=== PATIENT | female | born 1980 | race Caucasian/White ===

== ENCOUNTER 2017-11-16 21:44 | Emergency (ER) | payer MEDICAID ==
[~2017-11-16] VITALS: Ht 162.6 cm; Wt 77.3 kg
[~2017-11-16 21:44] MED LIST: CAMP85GE TP
[2017-11-16] MEDS ORDERED: dexamethasone 4mg/ml inj IV ONE (22:45)
[2017-11-16] MEDS ORDERED: proCHLORperazine 10 MG/2 ml inj IV ONE (22:45)
[2017-11-16] MEDS ORDERED: magnesium 2GM in 50ml NS 50 ML IV ONE (22:45)
[2017-11-16] MEDS ORDERED: ketorolac trometh. 30mg/ml inj. IV ONE (22:45)
[2017-11-16] MEDS ORDERED: normal saline 1000ML IV soln IVB ONE (22:45)
[2017-11-16] MEDS ORDERED: acetaminophen 325mg tablet PO ONE (22:45)
[2017-11-16] MEDS ORDERED: aspirin 325mg tablet PO ONE (22:45)
[2017-11-17 00:45] VITALS: BP 137/84
== END 2017-11-17 00:52 | disposition home or self-care (01) ==
LOC: ER 21:45
DX: K08.89 Other specified disorders of teeth and supporting structures (principal); R42 Dizziness and giddiness; R51 Headache; R11.0 Nausea; R55 Syncope and collapse; E11.9 Type 2 diabetes mellitus without complications; Z98.890 Other specified postprocedural states; Z90.49 Acquired absence of other specified parts of digestive tract; Z59.0 Homelessness
CPT/HCPCS: 93005; 96365; 96375; 99284; J0780; J1100; J1885; J3475; J7030

== ENCOUNTER 2017-11-21 17:32 | Emergency (ER) | payer MEDICAID ==
[~2017-11-21] VITALS: Ht 5367.7 cm; Wt 66.5 kg
[2017-11-21 17:55] VITALS: BP 119/76
[2017-11-21] MEDS ORDERED: HYDR-3965 PO (18:12)
[2017-11-21] MEDS ORDERED: ONDA4TAB9 PO (18:12)
[2017-11-21] MEDS ORDERED: ondansetron 4mg rapidly disintigrating tab PO ONE (18:15)
[2017-11-21] MEDS ORDERED: HYDROcodone/acetaminophen 10/325mg tab PO ONE (18:15)
== END 2017-11-21 18:36 | disposition home or self-care (01) ==
LOC: ER 17:33
DX: K02.9 Dental caries, unspecified (principal); K08.89 Other specified disorders of teeth and supporting structures; E11.9 Type 2 diabetes mellitus without complications; Z59.0 Homelessness; Z90.49 Acquired absence of other specified parts of digestive tract; Z98.890 Other specified postprocedural states; Z79.899 Other long term (current) drug therapy
CPT/HCPCS: 99283

== ENCOUNTER 2017-11-30 16:01 | Emergency (ER) | payer MEDICAID ==
[~2017-11-30] VITALS: Ht 165.1 cm; Wt 75.0 kg
[~2017-11-30 16:01] MED LIST changes: +HYDR-3965 PO; +ONDA4TAB9 PO
[2017-11-30] MEDS ORDERED: HYDR-569 PO (16:37)
[2017-11-30] MEDS ORDERED: HYDROcodone/acetaminophen 10/325mg tab PO ONE (16:55)
[2017-11-30] MEDS ORDERED: ondansetron 4mg rapidly disintigrating tab PO ONE (17:00)
[2017-11-30 17:13] VITALS: BP 145/81
== END 2017-11-30 17:22 | disposition home or self-care (01) ==
LOC: ER 16:02
DX: K08.89 Other specified disorders of teeth and supporting structures (principal); E11.9 Type 2 diabetes mellitus without complications; Z90.49 Acquired absence of other specified parts of digestive tract; Z98.890 Other specified postprocedural states; Z59.0 Homelessness
CPT/HCPCS: 99283

== ENCOUNTER → 2018-03-05 | Emergency (ER) | payer MEDICAID ==
[~2018-03-05] VITALS: Ht 162.6 cm; Wt 74.5 kg
[~2018-03-05] MED LIST changes: +BACDS PO; -HYDR-3965 PO; +HYDR-569 PO; +IBUP-1984 PO; +IBUP-1986 PO; -ONDA4TAB9 PO
[2018-03-05 13:18] VITALS: BP 136/122
== END | disposition home or self-care (01) ==
LOC: ER 12:31
DX: S30.0XXA Contusion of lower back and pelvis, initial encounter (principal); E11.9 Type 2 diabetes mellitus without complications; F10.10 Alcohol abuse, uncomplicated; Z79.1 Long term (current) use of non-steroidal anti-inflammatories (NSAID); Z79.899 Other long term (current) drug therapy; Z98.890 Other specified postprocedural states; Z90.89 Acquired absence of other organs; Z56.0 Unemployment, unspecified; W01.0XXA Fall on same level from slipping, tripping and stumbling without subsequent striking against object, initial encounter; Y93.89 Activity, other specified; Y92.89 Other specified places as the place of occurrence of the external cause; Y99.8 Other external cause status
CPT/HCPCS: 72220; 99284

== ENCOUNTER 2020-04-28 11:49 | Emergency (ER) | payer MEDICAID ==
[~2020-04-28] VITALS: Ht 162.6 cm; Wt 62.3 kg
[~2020-04-28 11:49] MED LIST changes: -BACDS PO; +HYDR-4383 PO; -HYDR-569 PO; -IBUP-1984 PO
--- NOTE | 2020-04-28 12:31 | NUR ---
OFFICER FROM [employer] CALLED FOR STATUS REPORT. HE STATES HE WILL BE IN TO SEE PT
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
--- NOTE | 2020-04-28 13:54 | NUR ---
[employer]IC [employer]ILITIES SALES REPRESENTATIVE JUSTINE IN TO SEE PT
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
--- NOTE | 2020-04-28 16:02 | NUR ---
SALLY Peng rn will be in @ 1830 to do SARLily. [employer] notified via [place]Celine contacted to observe.
[2020-04-28] MEDS ORDERED: azithromycin 250mg tablet PO ONE (18:45)
[2020-04-28] MEDS ORDERED: CefTRIAXone 250MG IM Kit w/LIDOcaine IM ONE (18:45)
[2020-04-28] MEDS ORDERED: metroNIDAZOLE 500mg tablet PO ONE (18:45)
[2020-04-28 19:30] LABS: URINE HCG NEGATIVE (NEG)
[2020-04-28 19:46] LABS: URINE AMPHETAMINE SCREEN POSITIVE (Neg); URINE BARBITUATE SCREEN NEGATIVE (Neg); URINE BENZODIAZEPINES SCREEN NEGATIVE (Neg); URINE CANNABINOID SCREEN NEGATIVE (Neg); URINE COCAINE SCREEN NEGATIVE (Neg); URINE METHADONE SCREEN NEGATIVE (Neg); URINE OPIATE SCREEN NEGATIVE (Neg); URINE PHENCYCLIDINE SCREEN NEGATIVE (Neg)
[2020-04-28] MEDS ORDERED: diphenhydrAMINE 25mg capsule PO ONE (21:50)
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
--- NOTE | 2020-04-29 00:50 | NUR ---
SHAE called to picker feeder SART kit
[2020-04-29 01:54] VITALS: BP 128/90
== END 2020-04-28 22:00 | disposition home or self-care (01) ==
LOC: ER 11:50
DX: T74.21XA Adult sexual abuse, confirmed, initial encounter (principal); S70.312A Abrasion, left thigh, initial encounter; S70.311A Abrasion, right thigh, initial encounter; M54.2 Cervicalgia; E11.9 Type 2 diabetes mellitus without complications; F12.90 Cannabis use, unspecified, uncomplicated; F15.90 Other stimulant use, unspecified, uncomplicated; Z90.49 Acquired absence of other specified parts of digestive tract; Z98.890 Other specified postprocedural states; Z59.0 Homelessness; Z88.8 Allergy status to other drugs, medicaments and biological substances; Z79.899 Other long term (current) drug therapy; X58.XXXA Exposure to other specified factors, initial encounter; Y93.89 Activity, other specified; Y92.89 Other specified places as the place of occurrence of the external cause; Y99.8 Other external cause status
CPT/HCPCS: 80305; 81025; 96372; 99283; J0696; Q0163

== ENCOUNTER 2023-01-31 11:20 | Emergency (ER) | payer MEDICAID, OTHER ==
[~2023-01-31] VITALS: Ht 162.6 cm; Wt 73.6 kg
[2023-01-31 11:27] VITALS: BP 156/84
[2023-01-31] MEDS ORDERED: CefTRIAXone 250MG inj IM ONE (12:10)
[2023-01-31] MEDS ORDERED: CefTRIAXone 250MG IM Kit w/LIDOcaine IM ONE (12:15)
[2023-01-31] MEDS ORDERED: SULF1TAB49 PO (12:25)
[2023-01-31] MEDS ORDERED: CEPH-585 PO (12:25)
== END 2023-01-31 12:48 | disposition home or self-care (01) ==
LOC: ER 11:22
DX: H00.034 Abscess of left upper eyelid (principal); H00.035 Abscess of left lower eyelid; E11.9 Type 2 diabetes mellitus without complications; F12.90 Cannabis use, unspecified, uncomplicated; F19.90 Other psychoactive substance use, unspecified, uncomplicated; Z59.00 Homelessness unspecified; Z90.49 Acquired absence of other specified parts of digestive tract; Z98.891 History of uterine scar from previous surgery; Z88.8 Allergy status to other drugs, medicaments and biological substances; Z79.899 Other long term (current) drug therapy
CPT/HCPCS: 96372; 99283; J0696

== ENCOUNTER 2024-04-14 16:12 | Emergency (ER) | payer MEDICAID ==
[~2024-04-14] VITALS: Ht 162.6 cm; Wt 71.4 kg
[2024-04-14] MEDS ORDERED: [UNRECOGNIZED DRUG - CODE] TP (16:38)
[2024-04-14] MEDS ORDERED: CEPH-585 PO (16:38)
[2024-04-14 16:53] VITALS: BP 132/80; PULSE 78; RESP 16; TEMP 98.6; O2SAT 99
== END 2024-04-14 16:54 | disposition home or self-care (01) ==
LOC: ER 16:12
DX: B07.8 Other viral warts (principal); E11.9 Type 2 diabetes mellitus without complications; F10.90 Alcohol use, unspecified, uncomplicated; F12.90 Cannabis use, unspecified, uncomplicated; F15.90 Other stimulant use, unspecified, uncomplicated; Z88.8 Allergy status to other drugs, medicaments and biological substances; Z79.899 Other long term (current) drug therapy; Z79.1 Long term (current) use of non-steroidal anti-inflammatories (NSAID); Z90.49 Acquired absence of other specified parts of digestive tract; Z98.890 Other specified postprocedural states; Z59.00 Homelessness unspecified
CPT/HCPCS: 99283